=== PATIENT | female | born 1940 | race Two or more races ===

== ENCOUNTER 2023-12-17 12:47 | Outpatient (CLI) | payer OTHER ==
[~2023-12-17 12:47] MED LIST: NORVASC2.5 M1
== END 2023-12-17 12:50 | disposition home or self-care (01) ==
LOC: NUCLEAR 12:47
PROVIDERS: ATTEND Psychiatry & Neurology Clinical Neurophysiology
DX: G30.1 Alzheimer's disease with late onset (principal)
CPT/HCPCS: 78803; A9557